=== PATIENT | female | born 1980 | race Caucasian/White ===

== ENCOUNTER 2018-10-25 19:53 | Outpatient (CLI) | payer MEDICAID | END 2018-10-25 23:59 | disposition short-term general hospital (02) | LOC: EMS 19:53 | PROVIDERS: ATTEND Surgery | DX: R11.2 Nausea with vomiting, unspecified (principal) | CPT/HCPCS: A0425; A0427; A0999 ==

== ENCOUNTER 2019-01-12 20:57 | Outpatient (CLI) | payer SELFPAY | END 2019-01-12 20:58 | disposition EMS.NT | LOC: EMS 20:57 | PROVIDERS: ATTEND Surgery | DX: E16.2 Hypoglycemia, unspecified (principal) ==

== ENCOUNTER 2019-03-09 06:45 | Outpatient (CLI) | payer SELFPAY | END 2019-03-09 06:46 | disposition EMS.NT | LOC: EMS 06:45 | PROVIDERS: ATTEND Surgery | DX: R41.0 Disorientation, unspecified (principal); R73.09 Other abnormal glucose ==

== ENCOUNTER 2022-05-21 13:50 | Outpatient (CLI) | payer MEDICARE, MEDICAID ==
--- NOTE | 2022-05-22 11:58 | Mammography Report ---
BILATERAL DIGITAL SCREENING MAMMOGRAM 3D/2D: 05/21/2022 CLINICAL: Routine screening. Comparison is made to exams dated: 09/03/2020 mammogram and 01/04/2016 mammogram - Chris Mathias Aurea. T he tissue of both breasts is extremely dense, which lowers the sensitivity of mammography. There is a new 0.3 cm oval equal density focal asymmetry in the right breast at 7 o'clock middle dept h. No other significant masses, calcifications, or other findings are seen in either breast. IMPRESSION: INCOMPLETE: NEEDS ADDITIONAL IMAGING EVALUATION The new 0.3 cm oval equal density focal asymmetry in the right breast resembles a cyst or a lymph nod e and is indeterminate. Additional views with possible ultrasound are recommended. Based on Tyrer-Cuzick model (a risk assessment model), the patient's lifetime risk is 32.3% and her 1 0 year risk is 5.3%. If a patient has an elevated risk, a more comprehensive evaluation should be con sidered and/or a referral to a genetic counselor. The [place] [employer], [employer], and NCCN Guidelines advise the consideration of Breast MRI as an adjunct to screening mammog bozena in patients whose "Lifetime risk to develop breast cancer" is 20% or higher. This exam was interpreted at Station ID: [id number]. NOTE: For mammograms, a report in lay terms will be sent to the patient. Approximately 15% of breast malignancies will not be visualized mammographically. In the management of a palpable breast mass, a negative mammogram must not discourage biopsy of a clinically suspicious lesion. Electronically Signed By: Dexter Lopez M.D. aty/:05/21/2022 17:35:58 ACR BI-RADS Category 0: Incomplete 3340F PARENCHYMAL PATTERN: (VD) - The breast(s) demonstrate(s) extremely dense parenchyma, limiting the sen sitivity of mammography. BI-RADS CATEGORY: (0) - 0 Mammo and [place] [id number] Immediate follow-up LATERALITY: (R)
== END 2022-05-21 13:51 | disposition home or self-care (01) ==
LOC: DI 13:50
PROVIDERS: ATTEND Nurse Practitioner
DX: Z12.31 Encounter for screening mammogram for malignant neoplasm of breast (principal); R92.8 Other abnormal and inconclusive findings on diagnostic imaging of breast

== ENCOUNTER 2022-08-27 21:56 | Outpatient (CLI) | payer MEDICARE, MEDICAID | END 2022-08-27 21:57 | disposition critical access hospital (66) | LOC: EMS 21:56 | DX: R10.84 Generalized abdominal pain (principal); R10.817 Generalized abdominal tenderness | CPT/HCPCS: A0425; A0427 ==

== ENCOUNTER 2022-08-27 22:20 | Emergency (ER) | payer MEDICARE, MEDICAID ==
[2022-08-27] MEDS ORDERED: HYDROmorphone 1 MG/ML CARPUJECT IVP STA (22:27)
[2022-08-27] MEDS ORDERED: ONDANSETRON 4 MG/2 ML VIAL IVP STA (22:28)
--- OUTSIDE RECORDS SUMMARY | 2022-08-27 22:33 | EXTERNAL MEDICAL SUMMARY RPT | Continuity of Care Document ---
:1980 Author Organization [facility] Address [address] [place] [address] Phone Allergies No information. Encounters No information. Functional Status No information. Immunizations No information. Medications No information. Problems No information. Procedures No information. Results/Labs test date author facility value unit interpret ation Result panel 1 (unknown) (no (unknown) (unknown) (no value) (units (unk nown) date) unknown) (unknown) (no (unknown) (unknown) [address] [place] [address] (units (unknown) date) unknown) (unknown) (no (unknown) (unknown) [place] [address] (unit s (unknown) date) unknown) (unknown) (no (unknown) (unknown) [facility] (units (unknown) date) unknown) (unknown) (no (unknown) (unknown) [facility] (units (unknown) date) Report unknown) (unknown) (no (unknown) (unknown) Signed (units (unkno wn) date) unknown) (unknown) (no (unknown) (unknown) (no value) (units (unk nown) date) unknown) (unknown) (no (unknown) (unknown) 05/30/22 (units (unkno wn) date) unknown) (unknown) (no (unknown) (unknown) Approved by: Gonzalez (units (unknown) date) Matt Weldon on unknown) 05/30/2022 at 16:59 (unknown) (no (unknown) (unknown) Bones and bursae: (units (unknown) date) No acute fracture. unknown) Small glenohumeral joint effusion. (unknown) (no (unknown) (unknown) COMPARISON: [facility] (units (unknown) date) [facility] unknown) [facility], CR, XR (unknown) (no (unknown) (unknown) Capsule and soft (units (unknown) date) tissues: There is unknown) some thickening and pericapsular edema of (unknown) (no (unknown) (unknown) Dictated by: Gonzalez (units (unknown) date) Matt Weldon on unknown) 05/30/2022 at 16:44 (unknown) (no (unknown) (unknown) FINDINGS: (units (unkn own) date) unknown) (unknown) (no (unknown) (unknown) IMPRESSION: (units (un known) date) Thickening/pericapsu unknown) lar edema of the inferior glenohumeral (unknown) (no (unknown) (unknown) INDICATIONS: (units (u nknown) date) Adhesive capsulitis unknown) of left shoulder (unknown) (no (unknown) (unknown) Image quality: (units (unknown) date) Excellent. unknown) (unknown) (no (unknown) (unknown) Limited evaluation (units (unknown) date) on this non unknown) arthrographic study. Focal anterior superior (unknown) (no (unknown) (unknown) Long head biceps (units (unknown) date) tendon is intact, unknown) with tendon sheath fluid. Sublabral foramen (unknown) (no (unknown) (unknown) Mild osteoarthritic (unit s (unknown) date) changes and joint unknown) effusion, with some decompressing into (unknown) (no (unknown) (unknown) Noncontrast oblique (unit s (unknown) date) coronal T2 fast spin unknown) echo with fat saturation, oblique (unknown) (no (unknown) (unknown) Rotator cuff: (units ( unknown) date) Supraspinatus unknown) tendinosis. Infraspinatus and teres minor are (unknown) (no (unknown) (unknown) Subscapularis (units ( unknown) date) tendinosis with unknown) interstitial tearing. Normal muscle bulk. (unknown) (no (unknown) (unknown) Supraspinatus and (units (unknown) date) subscapularis unknown) tendinosis, the latter with mild interstitial (unknown) (no (unknown) (unknown) TECHNIQUE: (units (unk nown) date) unknown) (unknown) (no (unknown) (unknown) VIEWS LEFT, (units (un known) date) 05/22/2022, 14:20. unknown) (unknown) (no (unknown) (unknown) echo with fat (units ( unknown) date) saturation through unknown) the shoulder. (unknown) (no (unknown) (unknown) focal tear of the (units (unknown) date) anterior superior unknown) labrum. Smooth boundaries favor the (unknown) (no (unknown) (unknown) glenohumeral and (units (unknown) date) acromioclavicular unknown) joints. (unknown) (no (unknown) (unknown) head biceps tendon (units (unknown) date) sheath. unknown) (unknown) (no (unknown) (unknown) inferior (units (unkno wn) date) glenohumeral unknown) ligament (05/08). Partial fat replacement of the rotator (unknown) (no (unknown) (unknown) partial rotator (units (unknown) date) interval fat unknown) replacement can be seen with reported adhesive (unknown) (no (unknown) (unknown) spin echo and T2 (units (unknown) date) fast spin echo with unknown) fat saturation, axial T1 spin echo and T2 (unknown) (no (unknown) (unknown) subacromial (units (un known) date) subdeltoid bursal unknown) fluid. Mild overall osteoarthritic changes of (unknown) (no (unknown) (unknown) versus sublabral (units (unknown) date) foramen, the latter unknown) is favored. (unknown) (no (unknown) (unknown) [id number] (units (unkno wn) date) unknown) (unknown) (no (unknown) (unknown) Accession Number: (units (unknown) date) [id number] unknown) (unknown) (no (unknown) (unknown) Age/Sex: 42 / F (units (unknown) date) Date of Service: unknown) (unknown) (no (unknown) (unknown) : 1980 (units (unknown) date) Acct:[id number] unknown) (unknown) (no (unknown) (unknown) Loc: MRI (units (unkno wn) date) unknown) (unknown) (no (unknown) (unknown) Ordering Provider: (units (unknown) date) Giovanni Ruffin MD unknown) (unknown) (no (unknown) (unknown) PROCEDURE: MR (units ( unknown) date) SHOULDER LT WO CON unknown) (unknown) (no (unknown) (unknown) Patient: (units (unkno wn) date) Nemo Davila MR#: unknown) M00 (unknown) (no (unknown) (unknown) Procedure: MR (units ( unknown) date) shoulder LT wo con unknown) (unknown) (no (unknown) (unknown) SHOULDER 2+ (units (un known) date) unknown) (unknown) (no (unknown) (unknown) Trace (units (unkno wn) date) unknown) (unknown) (no (unknown) (unknown) capsulitis. (units (un known) date) unknown) (unknown) (no (unknown) (unknown) fast spin (units (unkn own) date) unknown) (unknown) (no (unknown) (unknown) former. (units (unkno wn) date) unknown) (unknown) (no (unknown) (unknown) intact. (units (unkno wn) date) unknown) (unknown) (no (unknown) (unknown) interval. (units (unkn own) date) unknown) (unknown) (no (unknown) (unknown) labral tear (units (un known) date) unknown) (unknown) (no (unknown) (unknown) ligament and (units (u nknown) date) unknown) (unknown) (no (unknown) (unknown) sagittal T1 (units (un known) date) unknown) (unknown) (no (unknown) (unknown) tearing. (units (unkno wn) date) unknown) (unknown) (no (unknown) (unknown) the (units (unkno wn) date) unknown) (unknown) (no (unknown) (unknown) the long (units (unkno wn) date) unknown) (unknown) (no (unknown) (unknown) versus (units (unkno wn) date) unknown) Social History No information. Vital Signs No information.
[2022-08-27 22:40] LABS: BASOPHILS % (AUTO) 0.3 %; EOSINOPHILS % (AUTO) 0.5 %; HCT - HEMATOCRIT 40.9 % (37.0-47.0); LYMPHOCYTES # (AUTO) 0.6 10^3/uL (1.5-3.5); LYMPHOCYTES % (AUTO) 8.7 %; MEAN CORPUSCULAR HGB CONC 31.8 g/dL (32.0-36.0); MEAN PLATELET VOLUME 8.5 fL (7.9-10.8); MONOCYTES # (AUTO) 0.2 10^3/uL (0.0-1.0); MONOCYTES % (AUTO) 3.5 %; NEUTROPHILS # (AUTO) 5.8 10^3/uL (1.5-6.6); NEUTROPHILS % (AUTO) 86.8 %; PLT - PLATELET COUNT 259 10^3/uL (130-450); RED BLOOD COUNT 4.81 10^6/uL (4.20-5.40); RED CELL DISTRIBUTION WIDTH 19.1 % (12.0-15.0); WHITE BLOOD COUNT 6.6 x10^3/uL (4.8-10.8)
[2022-08-27 22:45] LABS: INR 0.8 (0.8-1.2); PT - PROTHROMBIN TIME 8.7 secs (9.9-12.6)
[2022-08-27 23:04] LABS: HCG,QUALITATIVE BLOOD NEGATIVE
[2022-08-27 23:08] LABS: ALBUMIN 2.9 g/dL (3.2-5.5); ALBUMIN/GLOBULIN RATIO 1.2 (1.0-2.2); BILIRUBIN,TOTAL 0.6 mg/dL (0.2-1.0); CALCIUM 7.6 mg/dL (8.5-10.3); CREATININE 14.6 mg/dL (0.4-1.0); POTASSIUM 3.3 mmol/L (3.5-5.0); TOTAL PROTEIN 5.4 g/dL (6.7-8.2)
--- NOTE | 2022-08-27 23:21 | ED Physician Documentation ---
PD HPI ABD PAIN - Stated complaint Stated Complaint: ABD PX - Chief complaint Chief Complaint: Abd Pain - History obtained from History obtained from: Patient, EMS - Additional information Additional information: Patient comes the emergency department via EMS for chief complaint of abdominal pain that has developed over approximately last 5 hours. She states that she was fine earlier in the day but while out [id number] with her family, she began to notice increasing discomfort in her abdomen. She states it is over the entire abdomen, though worse in the epigastric region. She states it feels like when she had peritonitis before. The patient is a diabetic and has end-stage renal disease, for which she does Nightly peritoneal dialysis. She states that when she had peritonitis previously, it was felt to be mediated through her catheter. She does not make any urine. She denies any changes in her bowel movements. No fevers or chills. No vomiting, though the patient does state t hat she felt nauseated after getting the fentanyl by the medics in route. No other complaints at this time. Review of Systems Ten Systems: 10 systems reviewed and negative Constitutional: reports: Reviewed and negative Eyes: reports: Reviewed and negative Ears: reports: Reviewed and negative Nose: reports: Reviewed and negative Throat: reports: Reviewed and negative Cardiac: reports: Reviewed and negative Respiratory: reports: Reviewed and negative GI: reports: Abdominal Pain : reports: Reviewed and negative Skin: reports: Reviewed and negative Musculoskeletal: reports: Reviewed and negative Neurologic: reports: Reviewed and negative Psychiatric: reports: Reviewed and negative Endocrine: reports: Reviewed and negative Immunocompromised: reports: Reviewed and negative PD PAST MEDICAL HISTORY - Past Medical History Past Medical History: Yes Endocrine/Autoimmune: Type 2 diabetes : Dialysis HEENT: Chronic vision loss, Other Other Past Medical History: detatched retina - Past Surgical History 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 - Present Medications Home Medications: Ambulatory Orders Medication Instructions Recorded Confirmed Insulin Glargine [Lantus Solostar] 08/27/22 Insulin Lispro [Humalog] 08/27/22 - Allergies Allergies/Adverse Reactions: Allergies Allergy/AdvReac Type Severity Reaction Status Date / Time No Known Drug Allergies Allergy Verified 08/27/22 22:24 - Social History Does the pt smoke?: No Smoking Status: Never smoker Does the pt drink ETOH?: No Does the pt have substance abuse?: No - Immunizations Immunizations are current?: Yes PD ED PE NORMAL - Vitals Vital signs reviewed: Yes - General General: Alert and oriented X 3, No acute distress, Well developed/nourished, Other (The patient appears moderately uncomfortable but otherwise is in no distress.) - HEENT HEENT: Atraumatic, PERRL, EOMI, Moist mucous membranes - Neck Neck: Supple, no meningeal sign - Cardiac Cardiac: RRR, No murmur, Strong equal pulses - Respiratory Respiratory: No respiratory distress, Clear bilaterally - Abdomen Abdomen: Soft, Non distended, Other (Moderate diffuse tenderness, no rebound or guarding. Tenderness is worst in epigastric region) - Back Back: No CVA TTP - Derm Derm: Normal color, Warm and dry, No rash - Extremities Extremities: No deformity, No edema - Neuro Neuro: Alert and oriented X 3 - Psych Psych: Normal mood, Normal affect Results - Vitals Vitals: Vital Signs - 24 hr 08/27/22 08/27/22 08/28/22 22:25 23:37 00:05 Temperature 37.3 C Heart Rate 102 H 104 H 99 Respiratory 22 20 16 Rate Blood Pressure 136/90 H 122/69 106/63 O2 Saturation 100 95 94 08/28/22 08/28/22 08/28/22 01:32 03:00 05:00 Temperature 37.2 C 37.1 C Heart Rate 91 92 86 Respiratory 16 13 14 Rate Blood Pressure 131/80 H 126/79 97/67 O2 Saturation 95 96 97 08/28/22 08/28/22 05:45 06:47 Temperature 37 C Heart Rate 94 86 Respiratory 15 13 Rate Blood Pressure 118/83 H 120/81 H O2 Saturation 100 98 Oxygen O2 Source Room air - Labs Labs: Microbiology 08/27/22 23:08 Body Fluid Culture - Preliminary Peritoneal Fluid Laboratory Tests 08/27/22 08/27/22 08/27/22 22:30 22:32 22:32 WBC 6.6 RBC 4.81 Hgb 13.0 Hct 40.9 MCV 85.0 MCH 27.0 MCHC 31.8 L RDW 19.1 H Plt Count 259 MPV 8.5 Neut # (Auto) 5.8 Lymph # (Auto) 0.6 L Steele # (Auto) 0.2 Eos # (Auto) 0.0 Baso # (Auto) 0.0 Absolute Nucleated RBC 0.00 Nucleated RBC % 0.0 PT 8.7 L INR 0.8 Sodium Potassium Chloride Carbon Dioxide Anion Gap BUN Creatinine Estimated GFR (MDRD) Glucose Lactic Acid Calcium Total Bilirubin AST ALT Alkaline Phosphatase Total Protein Albumin Globulin Albumin/Globulin Ratio Lipase Serum HCG, Qual Fluid Source Fluid Color Fluid Clarity Fluid WBC Fluid RBC Fluid Neutrophils % Fluid Lymphocytes % Fluid Monocytes % Fld Mesothelial Cell % Nasal Adenovirus (PCR) NOT DETECTED Nasal B. parapertussis DNA (PCR) NOT DETECTED Nasal Coronavir 229E PCR NOT DETECTED Nasal Coronavir HKU1 PCR NOT DETECTED Nasal Coronavir NL63 PCR NOT DETECTED Nasal Coronavir OC43 PCR NOT DETECTED Nasal Enterovir/Rhinovir PCR NOT DETECTED Nasal Influenza B PCR NOT DETECTED Nasal Influenza A PCR NOT DETECTED Nasal Parainfluen 1 PCR NOT DETECTED Nasal Parainfluen 2 PCR NOT DETECTED Nasal Parainfluen 3 PCR NOT DETECTED Nasal Parainfluen 4 PCR NOT DETECTED Nasal RSV (PCR) NOT DETECTED Nasal B.pertussis DNA PCR NOT DETECTED Nasal C.pneumoniae (PCR) NOT DETECTED Noble Human Metapneumo PCR NOT DETECTED Nasal M.pneumoniae (PCR) NOT DETECTED Nasal SARS-CoV-2 (PCR) NOT DETECTED 08/27/22 08/27/22 08/27/22 22:32 22:32 22:32 WBC RBC Hgb Hct MCV MCH MCHC RDW Plt Count MPV Neut # (Auto) Lymph # (Auto) Steele # (Auto) Eos # (Auto) Baso # (Auto) Absolute Nucleated RBC Nucleated RBC % PT INR Sodium 130 L Potassium 3.3 L Chloride 100 L Carbon Dioxide 15 L Anion Gap 15.0 H BUN 47 H Creatinine 14.6 H* Estimated GFR (MDRD) 3 L Glucose 132 H Lactic Acid 1.3 Calcium 7.6 L Total Bilirubin 0.6 AST 12 ALT 15 Alkaline Phosphatase 59 Total Protein 5.4 L Albumin 2.9 L Globulin 2.5 Albumin/Globulin Ratio 1.2 Lipase 32 Serum HCG, Qual NEGATIVE Fluid Source Fluid Color Fluid Clarity Fluid WBC Fluid RBC Fluid Neutrophils % Fluid Lymphocytes % Fluid Monocytes % Fld Mesothelial Cell % Nasal Adenovirus (PCR) Nasal B. parapertussis DNA (PCR) Nasal Coronavir 229E PCR Nasal Coronavir HKU1 PCR Nasal Coronavir NL63 PCR Nasal Coronavir OC43 PCR Nasal Enterovir/Rhinovir PCR Nasal Influenza B PCR Nasal Influenza A PCR Nasal Parainfluen 1 PCR Nasal Parainfluen 2 PCR Nasal Parainfluen 3 PCR Nasal Parainfluen 4 PCR Nasal RSV (PCR) Nasal B.pertussis DNA PCR Nasal C.pneumoniae (PCR) Noble Human Metapneumo PCR Nasal M.pneumoniae (PCR) Nasal SARS-CoV-2 (PCR) 08/27/22 23:08 WBC RBC Hgb Hct MCV MCH MCHC RDW Plt Count MPV Neut # (Auto) Lymph # (Auto) Steele # (Auto) Eos # (Auto) Baso # (Auto) Absolute Nucleated RBC Nucleated RBC % PT INR Sodium Potassium Chloride Carbon Dioxide Anion Gap BUN Creatinine Estimated GFR (MDRD) Glucose Lactic Acid Calcium Total Bilirubin AST ALT Alkaline Phosphatase Total Protein Albumin Globulin Albumin/Globulin Ratio Lipase Serum HCG, Qual Fluid Source PERITONEAL Fluid Color STRAW Fluid Clarity CLOUDY Fluid WBC 78145 Fluid RBC 0 Fluid Neutrophils % 93 Fluid Lymphocytes % 6 Fluid Monocytes % 1 Fld Mesothelial Cell % Not Reportable Nasal Adenovirus (PCR) Nasal B. parapertussis DNA (PCR) Nasal Coronavir 229E PCR Nasal Coronavir HKU1 PCR Nasal Coronavir NL63 PCR Nasal Coronavir OC43 PCR Nasal Enterovir/Rhinovir PCR Nasal Influenza B PCR Nasal Influenza A PCR Nasal Parainfluen 1 PCR Nasal Parainfluen 2 PCR Nasal Parainfluen 3 PCR Nasal Parainfluen 4 PCR Nasal RSV (PCR) Nasal B.pertussis DNA PCR Nasal C.pneumoniae (PCR) Noble Human Metapneumo PCR Nasal M.pneumoniae (PCR) Nasal SARS-CoV-2 (PCR) PD MEDICAL DECISION MAKING - ED course Complexity details: reviewed results, re-evaluated patient, considered differential, d/w patient ED course: The patient was treated symptomatically with Dilaudid, Zofran, and IV fluids. She was worked up with laboratory studies, which showed a normal white blood cell count and a creatinine of 14, and was sent for a noncontrast CT of the abdomen and pelvis. She was afebrile in the emergency department. We did send a sample of her peritoneal fluid for gram stain, culture and cell count. The patient was found to have cloudy ascitic fluid with a white blood cell count of over 23,000/mcL, Markedly above the threshold for antibiotic treatment for bacterial peritonitis. She was started on Rocephin as we do not have cefotaxime available for order. 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 Patient states most recent episode was about 5 or 6 months ago. We did call [facility], and they stated that they anticipate discharges sometime in the morning, and would be willing to entertain the idea of transfer at that time. We did also reach out to the cc just in case the patient cannot go to [place] and they are also working on helping to find placement for this patient, since we cannot do dialysis here. The patient was treated symptomatically for her pain while in the emergency department. She understands that we are trying to set up transfer and that this process may take a bit of time. She has remained stable here. At this point in time, we are still awaiting confirmation of an accepting hospital and a doctor to doctor conversation about the patient. As such, the p atient is signed out to Dr. Funez, pending this and final acceptance for transfer. The pt has a fingerstick glucose pending at this time, and insulin will be dosed accordingly. Departure - Departure Disposition: 02 Transfer Acute Care Hosp Clinical Impression: Acute bacterial peritonitis Condition: Serious
[2022-08-27 23:41] LABS: CC,BF RBC 0 /mm^3
[2022-08-27 23:43] LABS: CC,BF WBC 23944 /mm^3
[2022-08-27 23:47] LABS: B. PARAPERTUSSIS- RESP PCR PAN NOT DETECTED; B. PERTUSSIS- RESP PCR PANEL NOT DETECTED; C. PNEUMONIAE- RESP PCR PANEL NOT DETECTED; CORONAVIRUS 229E-RESP PCR NOT DETECTED; CORONAVIRUS HKU1-RESP PCR NOT DETECTED; CORONAVIRUS NL63-RESP PCR NOT DETECTED; CORONAVIRUS OC43-RESP PCR NOT DETECTED; HUMAN METAPNEUMOVIRUS NOT DETECTED; INFLUENZA A- RESP PCR PANEL NOT DETECTED; INFLUENZA B - RESP PCR PANEL NOT DETECTED; M. PNEUMONIAE- RESP PCR PANEL NOT DETECTED; PARAINFLUENZA VIRUS 1 NOT DETECTED; PARAINFLUENZA VIRUS 2 NOT DETECTED; PARAINFLUENZA VIRUS 3 NOT DETECTED; PARAINFLUENZA VIRUS 4 NOT DETECTED; RHINOVIRUS/ENTEROVIRUS NOT DETECTED; RSV- RESP PCR PANEL NOT DETECTED; SARS-CoV-2 -RESP PCR PANEL NOT DETECTED
[2022-08-28] MEDS ORDERED: cefTRIAXone 2 GM in SODIUM CHLORIDE 0.9% MINIBAG 100 ML IV STA (00:02)
[2022-08-28] MEDS ORDERED: cefTRIAXone 2 GM VIAL ONE (00:07)
--- NOTE | 2022-08-28 00:12 | CT Report ---
PROCEDURE: ABDOMEN/PELVIS WO INDICATIONS: diffuse abd pain, marked tenderness TECHNIQUE: Noncontrast 5 mm thick sections acquired from the diaphragms to the symphysis. 5 mm coronal and sagi ttal reformats were then performed. For radiation dose reduction, the following was used: automated exposure control, adjustment of mA and/or kV according to patient size. COMPARISON: None. FINDINGS: Image quality: Excellent. Lung bases: Unremarkable. Heart: Heart is normal in size. ABDOMEN: Liver:Noncontrast evaluation demonstrates no discrete hepatic mass. Gallbladder: Within normal limits without calcified gallstones. Biliary ducts: No biliary ductal dilatation. Pancreas: Unremarkable. Spleen: Normal in size. Adrenal Glands: No adrenal nodules. Kidneys and Ureters: No hydronephrosis.The kidneys are atrophic in size bilaterally. Stomach and Bowel: There is mild segmental wall thickening within the rectosigmoid colon. There is a lso suggestion of diffuse mild small bowel wall thickening which may reflect reactive changes seconda ry to free fluid. Peritoneum:There is a curvilinear catheter extending through the ventral abdominal wall in the left mid abdomen extending into the right hemipelvis. Findings likely represent a peritoneal dialysis cath eter. There is a moderate amount of free fluid within the abdomen and pelvis. No discrete loculated f luid collections. No free air. Ventral Wall: No hernia.Multiple subcutaneous calcifications are demonstrated within the ventral a bdominal wall suggestive of injection granulomas. Abdominal Nodes: No retroperitoneal or mesenteric adenopathy by size criteria. Vessels: Aorta and inferior vena cava are normal in size. PELVIS: Pelvic Organs: Unremarkable. Bladder: Unremarkable. Pelvic Nodes: No enlarged lymph nodes. Miscellaneous: No inguinal hernias are seen. Bones: Visualized osseous structures demonstrate no suspicious focal lesions. IMPRESSION: 1. Moderate amount of free fluid throughout the abdomen and pelvis is nonspecific but likely associat ed with patient's peritoneal dialysis catheter. However superimposed infection cannot be excluded. 2. Mild bowel wall thickening in the rectosigmoid colon as well as suggestion of mild wall thickening involving multiple small bowel loops. The findings are nonspecific and may be reactive secondary to ascites but the differential includes a mild infectious or inflammatory gastroenteritis. Reviewed by: Slim Savage MD on 08/28/2022 12:11 AM PDT Approved by: Slim Savage MD on 08/28/2022 12:11 AM PDT Station ID: [id number]
[2022-08-28 00:36] LABS: BF CLARITY CLOUDY; BF COLOR STRAW; BF SOURCE PERITONEAL; LYMPHOCYTES %,BODY FLUID 6 %; MONOCYTES %,BODY FLUID 1 %; NEUTROPHILS %, BF 93 %
[2022-08-28] MEDS ORDERED: HYDROmorphone 0.5 MG/0.5 ML SYRINGE IVP STA ×2 (05:20→08:28)
[2022-08-28 08:08] VITALS: BP 167/119
[2022-08-28] MEDS ORDERED: cefTRIAXone 1 GM VIAL IVP STA (08:28)
[2022-08-28] MEDS ORDERED: ACETAMINOPHEN 325 MG TABLET PO STA (08:31)
[2022-08-28] MEDS ORDERED: ONDANSETRON 4 MG/2 ML VIAL IVP STA (08:31)
--- NOTE | 2022-08-28 08:35 | ED Physician Documentation ---
ED Addendum - Addendum Addendum: 08/28/22 08:32 The patient is upset about time its taking for transfer and also feeling inadequate pain relief. She is also brought a morning breakfast tray that was not a renal diet. She is feeling where not adequately aware of taking care of her condition. She wishes to leave AGAINST MEDICAL ADVICE. I offered pain medication and we will give her a dose. She is not quite due for her next dose of Rocephin but approaching time so we will give her a dose of the ceftriaxone IV now prior to her leaving. She is agreeable to this. She is also given some nausea medicine. I offered a more scheduled regular dosing of pain medication and we can attempt for the kitchen to bring a renal diet. She states she has decided that she wants to sign out. She realizes that it is against advice and we were hoping to hear from [facility] in [place] about bed availability this morning after discharges there. The patient reiterates that she wants to leave at this time. She is excepting of medications now in order to help her symptoms. I did offer nausea pain and antibiotic medications. Disposition: The patient is discharged AGAINST MEDICAL ADVICE Diagnosis: 1. Generalized abdominal pain 2. Renal failure with home peritoneal dialysis 3. Early bacterial peritonitis
[2022-08-28] MEDS ORDERED: cefTRIAXone 2 GM in SODIUM CHLORIDE 0.9% MINIBAG 100 ML IV SCH (12:00)
== END 2022-08-28 08:54 | disposition left against medical advice (07) ==
LOC: EDUNIT# → ED 22:20
DX: Z53.29 Procedure and treatment not carried out because of patient's decision for other reasons (principal); K65.9 Peritonitis, unspecified; E11.9 Type 2 diabetes mellitus without complications; Z79.4 Long term (current) use of insulin; N19 Unspecified kidney failure; Z20.822 Contact with and (suspected) exposure to COVID-19
CPT/HCPCS: 36415; 74176; 80053; 83605; 83690; 84703; 85025; 85610; 87040; 87070; 87077; 87181; 87205; 87633; 89051; 96365; 96375; 96376; 99283; 99284; A9270; J1170

== ENCOUNTER 2022-11-02 15:06 | Emergency (ER) | payer MEDICARE, MEDICAID ==
[2022-11-02 15:30] VITALS: BP 181/109
--- OUTSIDE RECORDS SUMMARY | 2022-11-02 15:43 | EXTERNAL MEDICAL SUMMARY RPT | Continuity of Care Document ---
:1980 Author Organization [facility] Address [address] [place] [address] Phone Allergies No information. Encounters No information. Functional Status No information. Immunizations No information. Medications No information. Problems date description facility 2022-10-30 11:59 Awaiting organ transplant status [facility] Procedures No information. Results/Labs test date author facility value unit interpret ation Result panel 1 (unknown) (no (unknown) (unknown) (no value) (units (unk nown) date) unknown) (unknown) (no (unknown) (unknown) +---------+ (units (un known) date) [phone] +--------- unknown) (unknown) (no (unknown) (unknown) +---------+ (units (un known) date) Hospital +--------- unknown) (unknown) (no (unknown) (unknown) + (units (unknown) date) unknown) --- (unknown) (no (unknown) (unknown) 10/30/22 (units (unkno wn) date) unknown) (unknown) (no (unknown) (unknown) [id number] (units (unkno wn) date) unknown) (unknown) (no (unknown) (unknown) 1. Stable CT (units (u nknown) date) evaluation of the unknown) abdomen and pelvis. No acute abnormalities (unknown) (no (unknown) (unknown) [address] (units (unknown) date) unknown) (unknown) (no (unknown) (unknown) 2. Stable (units (unkn own) date) appearance of unknown) peritoneal dialysis catheter with scattered ascites and (unknown) (no (unknown) (unknown) 3. Extensive (units (u nknown) date) vascular unknown) calcifications, not significantly changed. (unknown) (no (unknown) (unknown) 5 mm (units (unkno wn) date) unknown) (unknown) (no (unknown) (unknown) : : [address] (units (unknown) date) : : unknown) (unknown) (no (unknown) (unknown) : : [id number] : : (units ( unknown) date) unknown) (unknown) (no (unknown) (unknown) : : CHRISTIANO Gann (units (unknown) date) : : unknown) (unknown) (no (unknown) (unknown) : : Phone: [phone] (units (unknown) date) : unknown) (unknown) (no (unknown) (unknown) :Account #: (units (un known) date) [id number] Gender: unknown) Female BSA: 1.6 m2 : (unknown) (no (unknown) (unknown) :: 1980 (units (unknown) date) Age: 42 yrs BP: unknown) 168/99 mmHg: (unknown) (no (unknown) (unknown) :[facility] MRN #: (units (unknown) date) [id number] unknown) ReadingLocation: Weight: 122 lb : (unknown) (no (unknown) (unknown) :OSIRIS Performed (units (unknown) date) By: Liz unknown) Cristobal : (unknown) (no (unknown) (unknown) :Name: JOSE L, (units (unknown) date) NEMO Sun Study Date: unknown) 10/30/2022 Height: 63 in : (unknown) (no (unknown) (unknown) :Ordering (units (unkn own) date) Physician: PATRICE, : unknown) (unknown) (no (unknown) (unknown) :Reason For Study: (units (unknown) date) Awaiting kidney unknown) transplant : (unknown) (no (unknown) (unknown) :Referring: PATRICE, (units (unknown) date) OSIRIS : unknown) (unknown) (no (unknown) (unknown) ABDOMEN: (units (unkno wn) date) unknown) (unknown) (no (unknown) (unknown) sev ratio: 0.80 (units (unknown) date) unknown) (unknown) (no (unknown) (unknown) AV VR_phl: 0.75 (units (unknown) date) unknown) (unknown) (no (unknown) (unknown) ARNALDO indexed to BSA (units (unknown) date) (cm2/m2): 1.2 unknown) (unknown) (no (unknown) (unknown) ARNALDO(VTI)/BSA_phl: (units (unknown) date) 1.2 unknown) (unknown) (no (unknown) (unknown) Accession Number: (units (unknown) date) [id number] unknown) (unknown) (no (unknown) (unknown) Accession Number: (units (unknown) date) [id number] unknown) (unknown) (no (unknown) (unknown) Age/Sex: 42 / F (units (unknown) date) Date of Service: unknown) (unknown) (no (unknown) (unknown) [place], [place] (units ( unknown) date) [id number] unknown) (unknown) (no (unknown) (unknown) Ao V2 VTI: 26.1 cm (units (unknown) date) ARNALDO(V,D): 1.7 cm2 unknown) (unknown) (no (unknown) (unknown) Ao V2 max: 138.0 (units (unknown) date) cm/sec LVOT Max unknown) Connor: 103.0 cm/sec (unknown) (no (unknown) (unknown) Ao V2 mean: 101.0 (units (unknown) date) cm/sec LV V1 max unknown) P.2 mmHg (unknown) (no (unknown) (unknown) Ao max P.0 (units (unknown) date) mmHg LV V1 VTI: unknown) 21.0 cm (unknown) (no (unknown) (unknown) Ao mean P.0 (units (unknown) date) mmHg ARNALDO(I,D): 1.8 unknown) cm2 (unknown) (no (unknown) (unknown) Aortic Valve: The (units (unknown) date) aortic valve is unknown) normal in structure and function. There is (unknown) (no (unknown) (unknown) Approved by: Dexter Kellerunits (unknown) date) Matt Lopez on unknown) 10/30/2022 at 15:28 (unknown) (no (unknown) (unknown) Atria: The left (units (unknown) date) atrial size is unknown) normal. The right atrium is normal in size. (unknown) (no (unknown) (unknown) Bones: No (units (unkn own) date) suspicious bony unknown) lesions. No acute vertebral body compression (unknown) (no (unknown) (unknown) COMPARISON: [facility] (units (unknown) date) [facility], CT, CT unknown) ABDOMEN PELVIS WO CON, 12/17/2021, 18:38. (unknown) (no (unknown) (unknown) CT Scan Report (units (unknown) date) unknown) (unknown) (no (unknown) (unknown) : 1980 (units (unknown) date) Acct:[id number] unknown) (unknown) (no (unknown) (unknown) Dictated by: Dexter (units (unknown) date) Matt Lopez on unknown) 10/30/2022 at 15:21 (unknown) (no (unknown) (unknown) Doppler (units (unkno wn) date) Measurements + unknown) Calculations (unknown) (no (unknown) (unknown) E/E' lat: 10.6 (units (unknown) date) unknown) (unknown) (no (unknown) (unknown) E/E' med: 14.5 PA (units (unknown) date) mean P.0 mmHg unknown) (unknown) (no (unknown) (unknown) E/e' average: 12.6 (units (unknown) date) unknown) (unknown) (no (unknown) (unknown) EPSS: 0.70 cm (units ( unknown) date) unknown) (unknown) (no (unknown) (unknown) Echocardiogram (units (unknown) date) Report unknown) (unknown) (no (unknown) (unknown) Echocardiography (units (unknown) date) Report unknown) (unknown) (no (unknown) (unknown) Electronically (units (unknown) date) signed by: Yuri Durbin on 10/30/2022 (unknown) (no (unknown) (unknown) FINDINGS: (units (unkn own) date) unknown) (unknown) (no (unknown) (unknown) FS: 32.4 % asc (units (unknown) date) Aorta Diam: 3.4 cm unknown) (unknown) (no (unknown) (unknown) Genitourinary: (units (unknown) date) Unremarkable. unknown) (unknown) (no (unknown) (unknown) Great Vessels: The (units (unknown) date) aortic root is unknown) normal size. The dimensions of the (unknown) (no (unknown) (unknown) IMPRESSION: (units (un known) date) unknown) (unknown) (no (unknown) (unknown) INDICATIONS: (units (u nknown) date) AWAITING ORGAN unknown) TRANSPLANT (unknown) (no (unknown) (unknown) IVSd: 1.0 cm (units (u nknown) date) unknown) (unknown) (no (unknown) (unknown) Image quality: (units (unknown) date) Excellent. unknown) (unknown) (no (unknown) (unknown) Interpretation (units (unknown) date) Summary unknown) (unknown) (no (unknown) (unknown) [facility] (units (unknown) date) unknown) (unknown) (no (unknown) (unknown) [facility] (units (unkno wn) date) unknown) (unknown) (no (unknown) (unknown) LA A2 area: 10.5 (units (unknown) date) cm2 RA area: 8.6 unknown) cm2 (unknown) (no (unknown) (unknown) LA A4 area: 12.1 (units (unknown) date) cm2 RA vol: 17.4 ml unknown) (unknown) (no (unknown) (unknown) LA dimension: 3.3 (units (unknown) date) cm RA long axis: unknown) 3.6 cm (unknown) (no (unknown) (unknown) LA length (vol): (units (unknown) date) 3.9 cm RA : 11.1 unknown) ml/m2 (unknown) (no (unknown) (unknown) LA vol index: 17.6 (units (unknown) date) ml/m2 unknown) (unknown) (no (unknown) (unknown) LA vol: 27.5 ml (units (unknown) date) unknown) (unknown) (no (unknown) (unknown) LV mathews. (units (unkno wn) date) diameter/BSA unknown) (cm/m2): 2.2 (unknown) (no (unknown) (unknown) LV sys. (units (unkno wn) date) diameter/BSA unknown) (cm/m2): 1.5 (unknown) (no (unknown) (unknown) LVIDd: 3.4 cm LVOT (units (unknown) date) diam: 1.7 cm unknown) (unknown) (no (unknown) (unknown) LVIDs: 2.3 cm Ao (units (unknown) date) root diam: 2.5 cm unknown) (unknown) (no (unknown) (unknown) LVLs ap2: 4.9 cm (units (unknown) date) unknown) (unknown) (no (unknown) (unknown) LVLs ap4: 4.6 cm (units (unknown) date) LVLd ap2: 5.7 cm unknown) (unknown) (no (unknown) (unknown) LVPWd: 0.90 cm (units (unknown) date) unknown) (unknown) (no (unknown) (unknown) Lat Peak E' Connor: (units (unknown) date) 6.7 cm/sec unknown) (unknown) (no (unknown) (unknown) Left Ventricle: (units (unknown) date) The left ventricle unknown) is normal in size and wall thickness. (unknown) (no (unknown) (unknown) Left ventricular (units (unknown) date) systolic function unknown) appears normal without focal wall motion (unknown) (no (unknown) (unknown) Loc: CT (units (unkno wn) date) unknown) (unknown) (no (unknown) (unknown) Lung bases: Lung (units (unknown) date) bases are clear. unknown) Heart size is normal. Coronary (unknown) (no (unknown) (unknown) MMode/2D (units (unkno wn) date) Measurements + unknown) Calculations (unknown) (no (unknown) (unknown) MV A max connor: (units ( unknown) date) 111.0 cm/sec TR max unknown) P.2 mmHg (unknown) (no (unknown) (unknown) MV E max connor: 70.4 (units (unknown) date) cm/sec TR max connor: unknown) 201.0 cm/sec (unknown) (no (unknown) (unknown) MV E/A: 0.63 PA V2 (units (unknown) date) max: 114.0 cm/sec unknown) (unknown) (no (unknown) (unknown) MV V2 VTI: 27.6 cm (units (unknown) date) unknown) (unknown) (no (unknown) (unknown) MV V2 mean: 62.8 (units (unknown) date) cm/sec SV(LVOT): unknown) 47.7 ml (unknown) (no (unknown) (unknown) MV dec time: 0.25 (units (unknown) date) sec unknown) (unknown) (no (unknown) (unknown) MV mean P.0 (units (unknown) date) mmHg unknown) (unknown) (no (unknown) (unknown) MVA(VTI): 1.7 cm2 (units (unknown) date) unknown) (unknown) (no (unknown) (unknown) Med Peak E' Connor: (units (unknown) date) 4.8 cm/sec PA V2 unknown) mean: 76.1 cm/sec (unknown) (no (unknown) (unknown) Miscellaneous: No (units (unknown) date) inguinal hernias or unknown) adenopathy. Subcutaneous soft tissue (unknown) (no (unknown) (unknown) Miscellaneous: No (units (unknown) date) ventral hernias. unknown) (unknown) (no (unknown) (unknown) Mitral Valve: The (units (unknown) date) mitral valve is unknown) normal in structure and function. There is (unknown) (no (unknown) (unknown) Moderate amount (units (unknown) date) unknown) (unknown) (no (unknown) (unknown) No significant (units (unknown) date) changes since prior unknown) study on 11/15/2021. (unknown) (no (unknown) (unknown) Nodes and vessels: (units (unknown) date) No retroperitoneal unknown) or mesenteric adenopathy by size (unknown) (no (unknown) (unknown) Noncontrast 5 mm (units (unknown) date) thick sections unknown) acquired from the diaphragms to the symphysis. (unknown) (no (unknown) (unknown) Ordering Provider: (units (unknown) date) Osiris Miguel MD unknown) (unknown) (no (unknown) (unknown) PELVIS: (units (unkno wn) date) unknown) (unknown) (no (unknown) (unknown) PROCEDURE: CT (units ( unknown) date) ABDOMEN PELVIS WO unknown) CON (unknown) (no (unknown) (unknown) Pancreas is (units (un known) date) unknown) (unknown) (no (unknown) (unknown) Patient: (units (unkno wn) date) Nemo Davila MR#: unknown) M00 (unknown) (no (unknown) (unknown) Pericardium/ (units (u nknown) date) Pleura There is no unknown) pericardial effusion. (unknown) (no (unknown) (unknown) Peritoneum and (units (unknown) date) bowel: Unenhanced unknown) bowel loops demonstrate normal wall thickness (unknown) (no (unknown) (unknown) Procedure: A (units (u nknown) date) two-dimensional unknown) transthoracic echocardiogram with color flow (unknown) (no (unknown) (unknown) Procedure: CT (units ( unknown) date) abdomen pelvis wo unknown) con (unknown) (no (unknown) (unknown) Procedure: EC echo (units (unknown) date) doppler complete unknown) (unknown) (no (unknown) (unknown) Pulmonic Valve: (units (unknown) date) The pulmonic valve unknown) leaflets are thin and pliable; valve (unknown) (no (unknown) (unknown) Reading (units (unkno wn) date) Physician:06:54 PM unknown) (unknown) (no (unknown) (unknown) Right Ventricle: (units (unknown) date) The right ventricle unknown) is normal in size and function. (unknown) (no (unknown) (unknown) Signed (units (unkno wn) date) unknown) (unknown) (no (unknown) (unknown) Solid organs: (units ( unknown) date) Liver is normal in unknown) size. Gallbladder is unremarkable . (unknown) (no (unknown) (unknown) TAPSE_phl: 2.3 cm (units (unknown) date) unknown) (unknown) (no (unknown) (unknown) TECHNIQUE: (units (unk nown) date) unknown) (unknown) (no (unknown) (unknown) The aortic root is (units (unknown) date) normal size. unknown) (unknown) (no (unknown) (unknown) The left atrial (units (unknown) date) size is normal. The unknown) right atrium is normal in size. (unknown) (no (unknown) (unknown) The left ventricle (units (unknown) date) is normal in size unknown) and wall thickness. Left ventricular (unknown) (no (unknown) (unknown) The right (units (unkn own) date) ventricle is normal unknown) in size and function. (unknown) (no (unknown) (unknown) There is no (units (un known) date) Doppler evidence unknown) for an interatrial shunt. (unknown) (no (unknown) (unknown) There is no (units (un known) date) significant unknown) valvular heart disease. (unknown) (no (unknown) (unknown) There is trace (units (unknown) date) tricuspid unknown) regurgitation. (unknown) (no (unknown) (unknown) These (units (unkno wn) date) unknown) (unknown) (no (unknown) (unknown) Tricuspid Valve: (units (unknown) date) The tricuspid valve unknown) is normal in structure and function. (unknown) (no (unknown) (unknown) (units (unknown) date) unknown) ___ (unknown) (no (unknown) (unknown) a few (units (unkno wn) date) unknown) (unknown) (no (unknown) (unknown) abnormalities. The (units (unknown) date) ejection fraction unknown) is estimated to be 55-60%. Diastolic (unknown) (no (unknown) (unknown) according to (units (u nknown) date) unknown) (unknown) (no (unknown) (unknown) and Doppler was (units (unknown) date) performed. The unknown) patient was in sinus rhythm with heart rates (unknown) (no (unknown) (unknown) and inferior vena (units (unknown) date) cava are normal in unknown) caliber. Diffuse, extensive visceral (unknown) (no (unknown) (unknown) and (units (unkno wn) date) unknown) (unknown) (no (unknown) (unknown) are likely related (units (unknown) date) to injection unknown) granulomas. (unknown) (no (unknown) (unknown) arterial (units (unkno wn) date) unknown) (unknown) (no (unknown) (unknown) ascending aorta (units (unknown) date) are normal. The IVC unknown) is of normal diameter and collapses (unknown) (no (unknown) (unknown) atherosclerotic (units (unknown) date) unknown) (unknown) (no (unknown) (unknown) atrophy as before. (units (unknown) date) No hydronephrosis unknown) or urolithiasis. Extensive (unknown) (no (unknown) (unknown) between 75-80 bpm (units (unknown) date) during the exam. unknown) (unknown) (no (unknown) (unknown) calcifications of (units (unknown) date) the bilateral renal unknown) arteries. (unknown) (no (unknown) (unknown) calcifications of (units (unknown) date) the inferior unknown) periumbilical anterior abdominal wall unchanged. (unknown) (no (unknown) (unknown) calcifications. (units (unknown) date) Atherosclerotic unknown) calcifications of the abdominal aorta. (unknown) (no (unknown) (unknown) caliber. A few (units (unknown) date) tiny locules of air unknown) likely related to dialysis catheter. (unknown) (no (unknown) (unknown) collection. (units (un known) date) Peritoneal dialysis unknown) catheter is unchanged in position with looped (unknown) (no (unknown) (unknown) coronal and (units (un known) date) sagittal reformats unknown) were then performed. For radiation dose (unknown) (no (unknown) (unknown) criteria. Aorta (units (unknown) date) unknown) (unknown) (no (unknown) (unknown) dialysis. (units (unkn own) date) unknown) (unknown) (no (unknown) (unknown) distal (units (unkno wn) date) unknown) (unknown) (no (unknown) (unknown) ejection fraction (units (unknown) date) is estimated to be unknown) 55-60%. Diastolic parameters suggest a (unknown) (no (unknown) (unknown) filling pressures. (units (unknown) date) unknown) (unknown) (no (unknown) (unknown) fluid (units (unkno wn) date) unknown) (unknown) (no (unknown) (unknown) following was (units ( unknown) date) used: automated unknown) exposure control, adjustment of mA and/or kV (unknown) (no (unknown) (unknown) fractures. (units (unk nown) date) unknown) (unknown) (no (unknown) (unknown) greater than 50% (units (unknown) date) with a sniff. This unknown) suggests a low right atrial pressure of 3 (unknown) (no (unknown) (unknown) identified. (units (un known) date) unknown) (unknown) (no (unknown) (unknown) mm Hg. (units (unkno wn) date) unknown) (unknown) (no (unknown) (unknown) motion is normal. (units (unknown) date) There is mild unknown) pulmonic regurgitation. There is no (unknown) (no (unknown) (unknown) normal in (units (unkn own) date) contours. Spleen is unknown) normal in size. No adrenal nodules. Bilateral (unknown) (no (unknown) (unknown) of scattered (units (u nknown) date) ascites without unknown) evidence to suggest ocular a okeefe or organized (unknown) (no (unknown) (unknown) parameters suggest (units (unknown) date) a relaxation unknown) abnormality of the left ventricle, consistent (unknown) (no (unknown) (unknown) patient size. (units ( unknown) date) unknown) (unknown) (no (unknown) (unknown) peritoneal (units (unk nown) date) unknown) (unknown) (no (unknown) (unknown) reduction, the (units (unknown) date) unknown) (unknown) (no (unknown) (unknown) relaxation (units (unk nown) date) abnormality of the unknown) left ventricle, consistent with probable normal (unknown) (no (unknown) (unknown) renal (units (unkno wn) date) unknown) (unknown) (no (unknown) (unknown) segment (units (unkno wn) date) terminating in the unknown) lower pelvis. (unknown) (no (unknown) (unknown) significant (units (un known) date) valvular heart unknown) disease. (unknown) (no (unknown) (unknown) systolic function (units (unknown) date) appears normal unknown) without focal wall motion abnormalities. The (unknown) (no (unknown) (unknown) tiny locules of (units (unknown) date) free air in the unknown) upper abdomen. This is felt to be related to (unknown) (no (unknown) (unknown) trace aortic (units (u nknown) date) regurgitation. unknown) (unknown) (no (unknown) (unknown) trace mitral (units (u nknown) date) regurgitation. unknown) (unknown) (no (unknown) (unknown) vascular (units (unkno wn) date) calcifications are unknown) noted. (unknown) (no (unknown) (unknown) with probable (units ( unknown) date) normal filling unknown) pressures. Social History No information. Vital Signs No information.
[2022-11-02] MEDS ORDERED: AMOX/CLAV 500 MG/125 MG TABLET PO STA (15:52)
--- NOTE | 2022-11-02 15:54 | ED Physician Documentation ---
History of Present Illness - Stated complaint Stated Complaint: RT SIDE SWELLING - Chief complaint Chief Complaint: Abd Pain - History obtained from History obtained from: Patient - Additonal information Additional information: 42-year-old woman with longstanding type 1 diabetes and ESRD on nightly peritoneal dialysis presents with swollen painful lump in the right groin starting today. She feels okay without fevers or chills but has been hyperglycemic today which she has already fixed prior to arrival by self bolusing insulin. 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 - Present Medications Home Medications: Ambulatory Orders Medication Instructions Recorded Confirmed Insulin Glargine [Lantus Solostar] 08/27/22 Insulin Lispro [Humalog] 08/27/22 Amox/Clav 500/125 [Augmentin 1 tablet PO Q12H #20 tablet 11/02/22 500/125] - Allergies Allergies/Adverse Reactions: Allergies Allergy/AdvReac Type Severity Reaction Status Date / Time No Known Drug Allergies Allergy Verified 11/02/22 15:30 - Social History Does the pt smoke?: No Smoking Status: Never smoker Does the pt drink ETOH?: No Does the pt have substance abuse?: No - Immunizations Immunizations are current?: Yes PD ED PE NORMAL - Vitals Vital signs reviewed: Yes - General General: Alert and oriented X 3, No acute distress - Abdomen Abdomen: Normal bowel sounds, Soft, Non tender - Female Female : Other (There is a tender swollen lymph node single in the right inguinal area confirmed with bedside ultrasound.) - Neuro Neuro: Alert and oriented X 3, Normal speech Results - Vitals Vitals: Vital Signs - 24 hr 11/02/22 15:25 Heart Rate 88 Respiratory 16 Rate Blood Pressure 181/109 H O2 Saturation 97 Oxygen O2 Source Room air PD Medical Decision Making - ED course ED course: 42-year-old woman with ESRD on peritoneal dialysis presents with inguinal adenopathy. We will start Augmentin, dosed for peritoneal dialysis, discussed follow-up and return precautions. Departure - Departure Disposition: Home, Self Care Clinical Impression: Inguinal adenopathy Condition: Good Record reviewed to determine appropriate education?: Yes Instructions: ED Cervical Adenitis Abx Tx Prescriptions: Amox/Clav 500/125 [Augmentin 500/125] 1 tablet PO Q12H #20 tablet Comments: Most cases of this are due to some sort of infection, and we are starting antibiotics dosed for peritoneal dialysis. Return for new or worsening symptoms. Follow-up with your doctor in a week or 2 if not better.
== END 2022-11-02 16:13 | disposition home or self-care (01) ==
LOC: ED 15:06
DX: R59.0 Localized enlarged lymph nodes (principal)
CPT/HCPCS: 99282; 99283; A9270

== ENCOUNTER 2023-09-18 09:57 | Outpatient (CLI) | payer MEDICARE, MEDICAID ==
--- NOTE | 2023-09-20 09:34 | Mammography Report ---
BILATERAL DIGITAL SCREENING MAMMOGRAM 3D/2D: 09/18/2023 CLINICAL: Routine screening. Comparison is made to exams dated: 08/09/2022 mammogram, 05/21/2022 mammogram - [facility], 09/03/2020 mammogram, and 01/04/2016 mammogram - [facility]. Both breasts are extremely dense, which lowers the sensitivity of mammography (category d />75% gland ular tissue). No significant masses, calcifications, or other findings are seen in either breast. There has been no significant interval change. IMPRESSION: NEGATIVE There is no mammographic evidence of malignancy. A 1 year screening mammogram is recommended. Based on Tyrer-Cuzick model (a risk assessment model), the patient's lifetime risk is 32.3% and her 1 0 year risk is 5.7%. If a patient has an elevated risk, a more comprehensive evaluation should be con sidered and/or a referral to a genetic counselor. The [employer], [employer], and NCCN Guidelines advise the consideration of Breast MRI as an adjunct to screening mammog bozena in patients whose "Lifetime risk to develop breast cancer" is 20% or higher. This exam was interpreted at Station ID: [id number]. NOTE: For mammograms, a report in lay terms will be sent to the patient. Approximately 15% of breast malignancies will not be visualized mammographically. In the management of a palpable breast mass, a negative mammogram must not discourage biopsy of a clinically suspicious lesion. Electronically Signed By: Sabino cheng/adams:09/18/2023 16:04:54 letter sent: No_Letter ACR BI-RADS Category 1: Negative 3341F PARENCHYMAL PATTERN: (VD) - The breast(s) demonstrate(s) extremely dense parenchyma, limiting the sen sitivity of mammography. BI-RADS CATEGORY: (1) - 1 Mammogram [id number] 1 year screening LATERALITY: (B)
== END 2023-09-18 09:58 | disposition home or self-care (01) ==
LOC: DI 09:57
DX: Z12.31 Encounter for screening mammogram for malignant neoplasm of breast (principal); R92.30 Dense breasts, unspecified

== ENCOUNTER 2023-12-06 20:53 | Emergency (ER) | payer MEDICARE, MEDICAID ==
--- NOTE | 2023-12-06 21:14 | ED Physician Documentation ---
PD HPI ABD PAIN - Stated complaint Stated Complaint: LT SIDED ABD PX - Chief complaint Chief Complaint: Abd Pain - History obtained from History obtained from: Patient - Additional information Additional information: Patient c/o 4 days of left-sided mid/lower abdominal pain, gradual onset without specific inciting event, constant and gradually worsening. Pain is worse with palpation and certain movements. Tonight patient was participating in a pool tournament and the pain was further exacerbated when she leaned against the pool table; the pain was significant enough that she had to quit the tournament. Patient underwent renal/pancreatic transplant February 2023. She denies h/o similar abdominal pain except somewhat comparable in intensity to when she had peritonitis (at that time she was undergoing peritoneal dialysis but catheter has been removed subsequent to the transplant last year). She denies fever, n/v, change in UO Review of Systems Constitutional: denies: Fever, Chills, Sweats Cardiac: reports: Reviewed and negative Respiratory: reports: Reviewed and negative GI: reports: Abdominal Pain. denies: Abdominal Swelling, Nausea, Vomiting, Constipation, Diarrhea : denies: Dysuria, Frequency Musculoskeletal: denies: Back pain PD PAST MEDICAL HISTORY - Past Medical History Past Medical History: Yes Endocrine/Autoimmune: Type 2 diabetes : Dialysis HEENT: Chronic vision loss, Other - Past Surgical History Past Surgical History: Yes /[employer]: section - Present Medications Home Medications: Ambulatory Orders Medication Instructions Recorded Confirmed Aspirin [Aspirin EC] 81 mg PO DAILY 12/06/23 12/06/23 Calcium Carbonate/Vitamin D3 1 each PO BID 12/06/23 12/06/23 [Calcium 250-Vit D3 125 Tablet] Magnesium Oxide [Mag Ox] 400 mg PO BID 12/06/23 12/06/23 Multivitamin 1 each PO DAILY 12/06/23 12/06/23 Mycophenolate Sodium [Mycophenolic 360 mg PO BID 12/06/23 12/06/23 Acid] Prednisone [Jeimy] 5 mg PO DAILY 12/06/23 12/06/23 Tacrolimus [Prograf] 3 mg PO BID 12/06/23 12/06/23 - Allergies Allergies/Adverse Reactions: Allergies Allergy/AdvReac Type Severity Reaction Status Date / Time No Known Drug Allergies Allergy Verified 12/06/23 20:57 - Social History Does the pt smoke?: No Smoking Status: Never smoker Does the pt drink ETOH?: No Does the pt have substance abuse?: No - Immunizations Immunizations are current?: Yes - POLST Patient has POLST: No PD ED PE NORMAL - Vitals Vital signs reviewed: Yes - General General: Alert and oriented X 3, Well developed/nourished, Other (appears uncomfortable, mild-moderate painful discomfort) - HEENT HEENT: Moist mucous membranes - Neck Neck: Supple, no meningeal sign - Cardiac Cardiac: RRR, No murmur - Respiratory Respiratory: No respiratory distress, Clear bilaterally - Abdomen Abdomen: Soft, Non distended, Other (mild TTP LLQ and left anterior abdomen without guarding or rebound) - Back Back: No CVA TTP - Derm Derm: Normal color, Warm and dry Results - Vitals Vitals: Oxygen O2 Source Room air - Labs Labs: Laboratory Tests 12/06/23 12/06/23 12/06/23 21:24 21:24 21:30 WBC 6.7 RBC 5.99 H Hgb 15.7 Hct 50.5 H MCV 84.3 MCH 26.2 L MCHC 31.1 L RDW 17.4 H Plt Count 282 MPV 9.4 Neut # (Auto) 4.9 Lymph # (Auto) 0.9 L [place] # (Auto) 0.7 Eos # (Auto) 0.1 Baso # (Auto) 0.0 Absolute Nucleated RBC 0.00 Nucleated RBC % 0.0 Sodium Potassium Chloride Carbon Dioxide Anion Gap BUN Creatinine Estimated GFR (MDRD) Glucose Calcium Total Bilirubin AST ALT Alkaline Phosphatase Total Protein Albumin Globulin Albumin/Globulin Ratio Lipase Urine Color YELLOW Urine Clarity CLEAR Urine pH 6.0 Ur Specific [place] >=1.030 H Urine Protein NEGATIVE Urine Glucose (UA) NEGATIVE Urine Ketones NEGATIVE Urine Occult Blood NEGATIVE Urine Nitrite NEGATIVE Urine Bilirubin NEGATIVE Urine Urobilinogen 0.2 (NORMAL) Ur Leukocyte Esterase NEGATIVE Ur Microscopic Review NOT INDICATED Urine Culture Comments NOT INDICATED Urine HCG, Qual NEGATIVE 12/06/23 21:30 WBC RBC Hgb Hct MCV MCH MCHC RDW Plt Count MPV Neut # (Auto) Lymph # (Auto) [place] # (Auto) Eos # (Auto) Baso # (Auto) Absolute Nucleated RBC Nucleated RBC % Sodium 139 Potassium 5.1 H Chloride 107 Carbon Dioxide 29 Anion Gap 3.0 L BUN 20 Creatinine 1.1 Estimated GFR (MDRD) 54 L Glucose 94 Calcium 9.0 Total Bilirubin 0.3 AST 22 ALT 19 Alkaline Phosphatase 51 Total Protein 5.7 L Albumin 3.6 Globulin 2.1 Albumin/Globulin Ratio 1.7 Lipase 43 Urine Color Urine Clarity Urine pH Ur Specific [place] Urine Protein Urine Glucose (UA) Urine Ketones Urine Occult Blood Urine Nitrite Urine Bilirubin Urine Urobilinogen Ur Leukocyte Esterase Ur Microscopic Review Urine Culture Comments Urine HCG, Qual - Rads (name of study) CT A/P Relevant Findings:: Prelim report reviewed, See rad report PD Medical Decision Making - ED course Complexity details: reviewed results, re-evaluated patient, considered differential, d/w patient ED course: Normal WBC, hgb, platelets on CBC. Mild hyperkalemia on otherwise unremarkable ER abdominal panel (5.1 potassium; bun is 20, creatinine 1.1 for GFR of 54). UA normal except for elevated specific gravity (>1.030). UHG negative. No concerning nor diagnostic findings on CT A/P. She is given 0.5mg IV dilaudid and reports adequate analgesia with this intervention. Results d/w patient. She is requesting d/c. I explained to her that I recommend waiting until I can contact someone from her transplant team to discuss her symptoms and test results with them to ascertain whether there are remaining concerns from their standpoint, but patient insists on d/c before I am able to do so. Return precautions are reviewed and low threshold for return is emphasized. I instructed her to contact her transplant team as soon as she can to inform them of her symptoms and tonight's ED visit, even if she feels the symptoms have improved or resolved. Departure - Departure Disposition: 01 Home, Self Care Clinical Impression: Abdominal pain Qualifiers: Abdominal location: left lower quadrant Qualified Code(s): R10.32 - Left lower quadrant pain Condition: Good Instructions: ED Abdominal Pain Female Non-Specific Abdominal Pain Comments: There were no concerning or diagnostic findings on tonight's tests. The CT scan of your abdomen pelvis was likewise unremarkable. The cause of your pain is not apparent at this time. I would like to get in touch with your transplant surgical team, but you have indicated that you want to go home before I am able to do so. Discharge Date/Time: 12/07/23 02:14
[2023-12-06 21:39] LABS: BASOPHILS % (AUTO) 0.6 %; EOSINOPHILS # (AUTO) 0.1 10^3/uL (0.0-0.7); EOSINOPHILS % (AUTO) 1.3 %; HCT - HEMATOCRIT 50.5 % (37.0-47.0); HGB - HEMOGLOBIN 15.7 g/dL (12.0-16.0); LYMPHOCYTES # (AUTO) 0.9 10^3/uL (1.5-3.5); LYMPHOCYTES % (AUTO) 13.8 %; MEAN CORPUSCULAR HEMOGLOBIN 26.2 pg (27.0-31.0); MEAN CORPUSCULAR HGB CONC 31.1 g/dL (32.0-36.0); MEAN CORPUSCULAR VOLUME 84.3 fL (81.0-99.0); MEAN PLATELET VOLUME 9.4 fL (7.9-10.8); MONOCYTES # (AUTO) 0.7 10^3/uL (0.0-1.0); MONOCYTES % (AUTO) 10.8 %; NEUTROPHILS # (AUTO) 4.9 10^3/uL (1.5-6.6); NEUTROPHILS % (AUTO) 73.2 %; PLT - PLATELET COUNT 282 10^3/uL (130-450); RED BLOOD COUNT 5.99 10^6/uL (4.20-5.40); RED CELL DISTRIBUTION WIDTH 17.4 % (12.0-15.0); WHITE BLOOD COUNT 6.7 x10^3/uL (4.8-10.8)
[2023-12-06 21:51] LABS: BILIRUBIN,URINE NEGATIVE (NEGATIVE); GLUCOSE, URINE (UA) NEGATIVE (NEGATIVE); KETONES,URINE (UA) NEGATIVE (NEGATIVE); LEUKOCYTE ESTERASE, URINE NEGATIVE (NEGATIVE); NITRITE,URINE NEGATIVE (NEGATIVE); OCCULT BLOOD,URINE NEGATIVE (NEGATIVE); PROTEIN,URINE NEGATIVE (NEGATIVE); UROBILINOGEN,URINE 0.2 (NORMAL) E.U./dL (NORMAL)
[2023-12-06 21:54] LABS: CLARITY,URINE CLEAR (CLEAR)
[2023-12-06 22:00] LABS: POTASSIUM 5.1 mmol/L (3.5-4.5)
[2023-12-06] MEDS: HYDROmorphone 1 MG/ML CARPUJECT IVP STA (22:02)
[2023-12-06 22:10] LABS: ALBUMIN 3.6 g/dL (3.2-5.5); ALBUMIN/GLOBULIN RATIO 1.7 (1.0-2.2); BILIRUBIN,TOTAL 0.3 mg/dL (0.2-1.0); CREATININE 1.1 mg/dL (0.6-1.3); TOTAL PROTEIN 5.7 g/dL (6.4-8.9)
[2023-12-06 23:01] LABS: HCG UR QUAL NEGATIVE
[2023-12-06 23:13] VITALS: O2SAT 98
--- NOTE | 2023-12-07 01:11 | CT Report ---
PROCEDURE: Abdomen/Pelvis WO INDICATIONS: left-sided abdominal pain/tenderness TECHNIQUE: A CT scan of the abdomen and pelvis was performed without the use of intravenous contrast. Images we re recorded and evaluated at appropriate window settings. Reformats: coronal and sagittal. For radiat ion dose reduction, the following was used: automated exposure control, adjustment of mA and/or kV ac cording to patient size. COMPARISON: 08/27/2022 FINDINGS: Image quality: Diagnostic. Lower chest: No basal effusions. Coronary artery calcification and advanced for the patient's stated age. Mild distal esophageal thickening. Liver: No contour-deforming mass. Gallbladder and biliary tree: No gallbladder calcifications. No biliary tree dilatation. Spleen: No splenomegaly. Pancreas: Normal torres martinez pancreas to the extent it is visible without contrast. Transplant pancreas is probably present in the right iliac fossa. Adrenals: No adrenal nodule. Kidneys and ureters: Diminutive torres martinez kidneys with heavy vascular calcification. No hydronephrosis o r mass. Left iliac fossa transplant kidney demonstrates a grossly normal contour. No visible hydronep hrosis or significant perinephric inflammation. Stomach, bowel and peritoneum: Stomach and bowel loops are normal caliber. No evidence of small or la rge bowel obstruction. There are some air-fluid levels normal caliber colon suggesting possible stasi s. Lymph nodes: No central or retroperitoneal adenopathy. Vessels: Normal caliber vasculature. Heavy arterial calcification of the branch arteries in the abdom en and pelvis. PELVIS Reproductive organs: Anteverted uterus. Ovaries are not well seen. Bladder: No wall thickness, accounting for underdistention. Pelvic lymph nodes: No pelvic adenopathy by size criteria. Bones: No aggressive osseous abnormality. Other: There are several calcified injection granulomas along the anterior abdominal wall subcutaneou s tissue. IMPRESSION: Transplant kidney is in the left iliac fossa. Although its noncontrast appearance is grossly normal, further pathology or rejection cannot be excluded. Air-fluid levels in the colon may indicate gastroenteritis. There are no signs of obstruction, coliti s, or significant colonic obstipation. Reviewed by: Wendy Stewart MD on 12/07/2023 1:10 AM PST Approved by: Wendy Stewart MD on 12/07/2023 1:10 AM PST Station ID: [id number]
[2023-12-07 02:14] VITALS: BP 112/72
== END 2023-12-07 02:14 | disposition home or self-care (01) ==
LOC: ED 20:53
DX: R10.32 Left lower quadrant pain (principal); E11.9 Type 2 diabetes mellitus without complications
CPT/HCPCS: 36415; 74176; 80053; 81003; 81025; 83690; 85025; 96374; 99283; 99284; J1170; 81001; 87086